=== PATIENT | female | born 1935 | race Native Hawaiian/Other Pacific Islander ===

== ENCOUNTER 2017-06-26 20:34 | Inpatient (IN) | payer MEDICARE, BC ==
[~2017-06-26] VITALS: Ht 160 cm; Wt 83.1 kg
[~2017-06-26 20:34] MED LIST: BYST10TA2 PO; CITRACAL PO; CLON.2 PO; CYMB30CA PO; DEXI60CA3 PO; EPIP0.3I IM; FELO10TA PO; ICOS1CAP PO; MYCOL15T TOP; [UNRECOGNIZED DRUG - OTHER] PO
[2017-06-26 20:44] VITALS: BP 147/94; PULSE 70; RESP 19; TEMP 98.8; O2SAT 95
[2017-06-26 20:54] VITALS: BP 146/66; PULSE 69; RESP 15; O2SAT 95
[2017-06-26] MEDS ORDERED: SODIUM CHLORIDE 0.9% FLUSH 10 ML FLUSH IVF PRN ×2 (21:00→23:45)
--- NOTE | 2017-06-26 21:04 | PD ---
HPI Chief Complaint: fall Time Seen by Provider: 20:50 Travel History International Travel<30 days: No Contact w/Intl Traveler<30days: No Traveled to known affect area: No History of Present Illness HPI 81-year-old female presents to the emergency department by EMS transport from her physician office. 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 Patient had immediate pain to her left humerus. Patient was identified to have deformity of the left upper arm. Patient has had previous surgery to the left shoulder. Patient is left-handed. Patient denies any distal numbness tingling or weakness. Patient reports she did not hit her head did not have loss of consciousness. Patient initially did not have neck pain but now reports midline neck pain. Patient presents on EMS stretcher with sling application to the left upper extremity and patella placed to provide support. Patient denies any chest pain, pleuritic chest pain, rib pain, shortness of breath, abdominal pain, pelvic pain, back pain, right upper extremity or bilateral lower extremity new numbness tingling or weakness or pain. Patient uses a cane due to sequela of complications from shingles of the low back one year ago. Patient has been left with chronic right lower extremity weakness. At time of EMS evaluation left humerus/upper arm pain was 10 over 10 in intensity; after morphine sulfate 10 mg IV current pain is reported as 2/10 in intensity. Patient rates her posterior neck pain 2/10 in intensity. Patient with extensive past medical history that includes ADHD, lupus, arthritis, gastroparesis managed by diet, GERD, hypertension, idiopathic cytopenia purpura status post splenectomy, obstructive sleep apnea without CPAP , osteoporosis, renal cell carcinoma with right nephrectomy, psoriasis, recurrent sinus infection, cataract surgery, cholecystectomy, previous left shoulder proximal humerus surgery for/2014, hysterectomy, and bilateral femur fractures status post open reduction internal fixation. According to patient's , Dr. Mancilla, Dr. Vale, orthopedist marine service station attendant for patient's orthopedist Dr. Huerta, is to be contacted as soon as imaging of the left upper extremity is resulted. [facility] Past Medical History Narrative Medical ADHD, lupus, arthritis, gastroparesis managed by diet, GERD, hypertension, idiopathic cytopenia purpura status post splenectomy, obstructive sleep apnea without CPAP, osteoporosis, renal cell carcinoma with right nephrectomy, psoriasis, recurrent sinus infection, cataract surgery, cholecystectomy, previous left shoulder proximal humerus surgery , hysterectomy, and bilateral femur fractures status post open reduction internal fixation; no alcohol use no tobacco use no substance use; nursing notes reviewed Arthritis: Yes (OSTEOARTHRITIS) Blood Disorders: No Cancer: Yes Genitourinary: Yes Hypertension: Yes Psychiatric: No Past Surgical History Cholecystectomy: Yes Genitourinary Surgery: Yes (R NEPHRECTOMY DUE TO RENAL CARCINOMA) Hysterectomy: Yes Joint Replacement: Yes Social History Alcohol Use: No Tobacco Use: No Substance Use: No Allergies-Medications (Allergen,Severity, Reaction): Coded Allergies: Sulfa (Sulfonamide Antibiotics) (Unverified Allergy, Severe, 06/09/17) UNKNOWN benazepril (Unverified Allergy, Severe, 06/09/17) captopril (Unverified Allergy, Severe, 06/09/17) cefuroxime (Unverified Allergy, Severe, 06/09/17) codeine (Unverified Allergy, Severe, 06/09/17) UNKNOWN enalaprilat (Unverified Allergy, Severe, 06/09/17) fosinopril (Unverified Allergy, Severe, 06/09/17) iodine (Unverified Allergy, Severe, 06/09/17) UNKNOWN latex (Unverified Allergy, Severe, Hives, 06/09/17) levofloxacin (Unverified Allergy, Severe, 06/09/17) UNKNOWN PATIENT SAID HAS HAD CIPRO BEFORE WITH NO PROBLMES lisinopril (Unverified Allergy, Severe, 06/09/17) penicillin G (Unverified Allergy, Severe, 06/09/17) UNKNOWN pentazocine (Unverified Allergy, Severe, 06/09/17) potassium iodide (Unverified Allergy, Severe, 06/09/17) UNKNOWN povidone-iodine (Unverified Allergy, Severe, 06/09/17) UNKNOWN quinapril (Unverified Allergy, Severe, 06/09/17) Uncoded Allergies: Tetanus Antitoxin (Allergy, Severe, Anaphylaxis, 11/15/09) bee and wasp stings (Allergy, Severe, 06/21/09) cefzol (Allergy, Severe, 06/21/09) hep b (Allergy, Severe, 06/21/09) nsaids (Allergy, Severe, 06/21/09) CRAB,LOBSTER, SHRIMP (Allergy, Unknown, 05/23/06) AARB's (Adverse Reaction, Intermediate, Cough with all of them, 01/17/15) Reported Meds & Prescriptions Reported Meds & Active Scripts Active Reported [place]-3 Fish Oil/Vitamin (Fish Oil-Cholecalciferol) 1,000-1,000 Mg Cap 1 Cap PO DAILY Vitamin D3 (Cholecalciferol) 2,000 Unit Cap 2,000 Units PO DAILY Valtrex (Valacyclovir HCl) 1,000 Mg Tab 1,000 Mg PO TID Valium (Diazepam) 10 Mg Tab 10 Mg PO HS PRN [prevagin] 1 Tab PO DAILY Losartan (Losartan Potassium) 50 Mg Tab 50 Mg PO DAILY [Cortumin] 1 Tab PO DAILY Clonidine (Clonidine HCl) 0.2 Mg Tab 0.2 Mg PO HS Citracal + D3 Maximum (Calcium Citrate-Vitamin D) 315-250 Mg-Unit Tab 1 Tab PO DAILY Centrum Silver Women Tablet (Multivit-Min/Iron/Folic/Lutein) 8 Mg Iron-400 Mcg- 300 Mcg Tablet 1 Tab PO DAILY Armodafinil 250 Mg Tab 250 Mg PO DAILY Review of Systems Except as stated in HPI: all other systems reviewed are Neg Physical Exam Narrative GENERAL: Well-developed elderly female in no acute distress no respiratory distress resting supine on exam stretcher; GCS 15; left upper extremity with sling in place and follow for support. SKIN: Warm and dry. HEAD: Normocephalic. Atraumatic. Scalp nontender to direct palpation no bony step-off no soft tissue swelling. EYES: No scleral icterus. Pupils equal round reactive to light extraocular muscles intact. No injection or drainage. ENT: Mucous members moist airway is patent; bilateral tympanic membranes no redness no dullness no hemotympanum NECK: Supple, trachea midline. Mild midline tenderness to palpation along the posterior spine without bony step-off or point tenderness. Cervical collar applied. No JVD or lymphadenopathy. CARDIOVASCULAR: Regular rate and rhythm without murmurs, gallops, or rubs. Chest wall: Nontender to palpation. RESPIRATORY: Breath sounds equal bilaterally. No accessory muscle use. GASTROINTESTINAL: Abdomen soft, non-tender, nondistended. MUSCULOSKELETAL: No cyanosis, or edema. Left upper extremity with sling in place soft tissue swelling noted that shaft of the upper arm; no point tenderness to palpation at the shoulder or at the elbow extremity is kept in position of comfort; distally forearm wrist and hand digits neurovascular tendon intact; capillary refill brisk and less than 2 seconds, radial pulses 2+ to palpation. No CVA tenderness. Pelvis stable. Bilateral lower extremities nontender to palpation demonstrate intact range of motion capillary refill brisk and less than 2 seconds dorsalis pedis pulses 2+ to palpation bilaterally ; right upper extremity intact range of motion radial pulse 2+ to palpation. BACK: Nontender without obvious deformity to direct palpation. No CVA tenderness. Pelvis stable. Data Data Last Documented VS Vital Signs Date Time Temp Pulse Resp B/P (MAP) Pulse Ox O2 Delivery O2 Flow Rate FiO2 06/26/17 20:54 69 15 146/66 (92) 95 Room Air 06/26/17 20:44 98.8 Orders Orders Electrocardiogram (06/26/17 20:51) Complete Blood Count With Diff (06/26/17 20:51) Comprehensive Metabolic Panel (06/26/17 20:51) Prothrombin Time / Inr (Pt) (06/26/17 20:51) Act Partial Throm Time (Ptt) (06/26/17 20:51) Type And Screen (06/26/17 20:51) Chest, Single Ap (06/26/17 20:51) Iv Access Insert/Monitor (06/26/17 20:51) Oximetry (06/26/17 20:51) Ecg Monitoring (06/26/17 20:51) Sodium Chloride 0.9% Flush (Ns Flush) (06/26/17 21:00) Ct Cerv Spine W/O Contrast (06/26/17 ) Humerus (Min 2vws) (06/26/17 ) NPO (06/26/17 20:51) Apply Cervical Collar (06/26/17 20:51) Ice/Cold Pack (06/26/17 20:51) Splint Or Brace Apply/Monitor (06/26/17 22:49) Support Splint (06/26/17 22:49) Morphine Inj (Morphine Inj) (06/26/17 23:00) Labs Laboratory Tests Test 06/26/17 20:58 White Blood Count 11.2 TH/MM3 Red Blood Count 4.75 MIL/MM3 Hemoglobin 14.8 GM/DL Hematocrit 45.1 % Mean Corpuscular Volume 95.0 FL Mean Corpuscular Hemoglobin 31.2 PG Mean Corpuscular Hemoglobin Concent 32.9 % Red Cell Distribution Width 13.7 % Platelet Count 310 TH/MM3 Mean Platelet Volume 8.3 FL Neutrophils (%) (Auto) 46.5 % Lymphocytes (%) (Auto) 40.5 % Monocytes (%) (Auto) 8.7 % Eosinophils (%) (Auto) 3.4 % Basophils (%) (Auto) 0.9 % Neutrophils # (Auto) 5.2 TH/MM3 Lymphocytes # (Auto) 4.5 TH/MM3 Monocytes # (Auto) 1.0 TH/MM3 Eosinophils # (Auto) 0.4 TH/MM3 Basophils # (Auto) 0.1 TH/MM3 CBC Comment DIFF FINAL Differential Comment Prothrombin Time 10.8 SEC Prothromb Time International Ratio 1.0 RATIO Activated Partial Thromboplast Time 25.1 SEC Blood Urea Nitrogen 14 MG/DL Creatinine 1.11 MG/DL Random Glucose 94 MG/DL Total Protein 8.3 GM/DL Albumin 3.1 GM/DL Calcium Level 9.0 MG/DL Alkaline Phosphatase 117 U/L Aspartate Amino Transf (AST/SGOT) 40 U/L Alanine Aminotransferase (ALT/SGPT) 25 U/L Total Bilirubin 0.4 MG/DL Sodium Level 134 MEQ/L Potassium Level 4.7 MEQ/L Chloride Level 99 MEQ/L Carbon Dioxide Level 28.4 MEQ/L Anion Gap 7 MEQ/L Estimat Glomerular Filtration Rate 47 ML/MIN [facility] Medical Decision Making Medical Screen Exam Complete: Yes Emergency Medical Condition: Yes Medical Record Reviewed: Yes Interpretation(s) CT cerv spine CONCLUSION: Chronic degenerative changes throughout the cervical spine as described above. An acute bony abnormality is not seen. Manny Ugarte MD on June 26, 2017 at 22:42 Differential Diagnosis Humerus fracture, shoulder dislocation, cervical spine sprain strain fracture Narrative Course Patient transition from EMS stretcher to ED stretcher with left upper extremity immobilized with sling and pillow; specimens corrected and sent for resulting; imaging studies ordered; patient kept npo. At 11 PM cervical collar removed by id Physician Communication Physician Communication discussed with Dr Vale--patient status post reverse total shoulder replacement with a periprosthetic fracture --discussed with zeenat for Dr Agee --long arm splint npo after MN; call placed to discussed with Shamika admit to Dr Emerson Diagnosis Primary Impression: Humerus shaft fracture Qualified Codes: S42.322A - Displaced transverse fracture of shaft of humerus , left arm, initial encounter for closed fracture Vita Garcia MD Jun 26, 2017 21:04
[2017-06-26 21:33] LABS: AUTOMATED NEUTROPHIL # 5.2 TH/MM3 (1.8-7.7); BASOPHIL # 0.1 TH/MM3 (0-0.2); BASOPHIL % 0.9 % (0.0-2.0); EOSINOPHIL # 0.4 TH/MM3 (0-0.4); EOSINOPHIL % 3.4 % (0.0-4.0); HEMATOCRIT 45.1 % (35.0-46.0); HEMO FLAGS DIFF FINAL; LYMPH % 40.5 % (9.0-44.0); LYMPHOCYTE # 4.5 TH/MM3 (1.0-4.8); MEAN CORPUSCULAR HEMOGLOBIN 31.2 PG (27.0-34.0); MEAN CORPUSCULAR HGB CONC 32.9 % (32.0-36.0); MONO % 8.7 % (0.0-8.0); NEUT % 46.5 % (16.0-70.0); PLATELET COUNT 310 TH/MM3 (150-450); RED BLOOD COUNT 4.75 MIL/MM3 (4.00-5.30); RED CELL DISTRIBUTION WIDTH 13.7 % (11.6-17.2); WHITE BLOOD COUNT 11.2 TH/MM3 (4.0-11.0)
[2017-06-26 21:39] LABS: PROTHROMBIN TIME - PATIENT 10.8 SEC (9.8-11.6)
[2017-06-26 21:46] LABS: APTT (PATIENT) 25.1 SEC (24.3-30.1)
[2017-06-26 21:55] LABS: ANION GAP 7 MEQ/L (5-15); AST (GOT) 40 U/L (15-37); BICARBONATE 28.4 MEQ/L (21.0-32.0); BLOOD UREA NITROGEN 14 MG/DL (7-18); CHLORIDE 99 MEQ/L (98-107); GLOMERULAR FILTRATION RATE 47 ML/MIN (>89); SODIUM (NA) 134 MEQ/L (136-145)
[2017-06-26 21:56] LABS: POTASSIUM 4.7 MEQ/L (3.5-5.1)
[2017-06-26 21:57] LABS: ALKALINE PHOSPHATASE 117 U/L (45-117); ALT (GPT) 25 U/L (10-53); TOTAL BILIRUBIN ADULT 0.4 MG/DL (0.2-1.0)
--- NOTE | 2017-06-26 22:32 | RADRPT ---
EXAM DATE/TIME: 06/26/2017 21:18 [facility] COMPARISON: No previous studies available for comparison. INDICATIONS : Short of breath. MEDICAL HISTORY : None. SURGICAL HISTORY : None. ENCOUNTER: Initial ACUITY: 1 day PAIN SCORE: 0/10 LOCATION: Bilateral chest FINDINGS: A single view of the chest demonstrates mild increased density in the left base. The right lung is gr ossly clear. The heart size is normal. There is a left shoulder prosthesis in place. CONCLUSION: Suspected mild atelectasis or consolidation at the left base. Manny Ugarte MD on June 26, 2017 at 22:29 Board Certified Radiologist. This report was verified electronically.
[2017-06-26] MEDS ORDERED: [UNRECOGNIZED DRUG - OTHER] PO (22:42)
[2017-06-26] MEDS ORDERED: MULT1TAB61 PO (22:42)
[2017-06-26] MEDS ORDERED: CITRTAB7 PO (22:42)
[2017-06-26] MEDS ORDERED: prevagin PO (22:42)
[2017-06-26] MEDS ORDERED: LOSA50TA PO (22:42)
[2017-06-26] MEDS ORDERED: CLON0.2T PO (22:42)
[2017-06-26] MEDS ORDERED: DIAZ10 PO (22:42)
[2017-06-26] MEDS ORDERED: ARMO1TAB4 PO (22:42)
[2017-06-26] MEDS ORDERED: OMEGCAP PO (22:43)
[2017-06-26] MEDS ORDERED: VALT1TAB PO (22:43)
[2017-06-26] MEDS ORDERED: VITA2000 PO (22:43)
--- NOTE | 2017-06-26 22:43 | RADRPT ---
EXAM DATE/TIME: 06/26/2017 21:23 [facility] COMPARISON: No previous studies available for comparison. INDICATIONS : Left arm pain after fall. MEDICAL HISTORY : None. SURGICAL HISTORY : ORIF of left shoulder. ENCOUNTER: Initial ACUITY: 1 day PAIN SCORE: 10/10 LOCATION: Left Humerus FINDINGS: There is a left shoulder prosthesis in place. There is fracture of the mid humerus at the level of th e distal aspect of the humeral component of the prosthesis. The distal fragment is displaced posterio rly and laterally. CONCLUSION: Acute fracture of the mid humerus. The patient has a left humeral prosthesis in place. Manny Ugarte MD on June 26, 2017 at 22:40 Board Certified Radiologist. This report was verified electronically.
--- NOTE | 2017-06-26 22:57 | RADRPT ---
EXAM DATE/TIME: 06/26/2017 21:33 [facility] COMPARISON: No previous studies available for comparison. INDICATIONS : Trauma; fall. RADIATION DOSE: 20.94 CTDIvol (mGy) MEDICAL HISTORY : Cardiovascular disease. Hypertension. Renal carcinoma SURGICAL HISTORY : Hysterectomy. Cholecystectomy. ENCOUNTER: Initial ACUITY: 1 day PAIN SCALE: 10/10 LOCATION: Neck TECHNIQUE: Volumetric scanning of the cervical spine was performed. Multiplanar reconstructions i n the sagittal, coronal and oblique axial planes were performed. Using automated exposure control a nd adjustment of the mA and/or kV according to patient size, radiation dose was kept as low as reason ably achievable to obtain optimal diagnostic quality images. DICOM format image data is available e lectronically for review and comparison. FINDINGS: VERTEBRAE: The cervical vertebral bodies are normal in height. There is very prominent hypertroph ic change seen around the anterior arch of the C1. This extends to the anterior inferior aspect of th e clivus and inferiorly from the C1 anterior arch anterior to the dens. This is chronic. The C1 ring is intact. ALIGNMENT: There is mild anterior subluxation of C4 on C5 and C5 on C6 in the order of 2 mm secon joy to facet hypertrophy. C2-C3: There is mild posterior osteophytic ridging at the posterior superior aspect of the C3 verteb ral body causing a minimal impression on the anterior aspect of the thecal sac. There is bilateral fa cet hypertrophy being asymmetric and much more prominent on the right. There is mild narrowing of th e right neural foramina. The left neural foramina appears intact. C3-C4: There is mild disc bulge and osteophytic ridging causing a mild impression on the thecal sac. There is uncovertebral hypertrophy. There SI bilateral facet hypertrophy being worse on the right. There is narrowing of the right neural foramina. The left neural foramina is grossly intact. C4-C5: Again noted is the anterior subluxation. A significant impression on the thecal sac is not c learly seen. There is uncovertebral and facet hypertrophy. There is narrowing of the neural foramina bilaterally. C5-C6: Disc demonstrates decreased height. There is minimal bulging. Again noted is the anterior dyson bluxation of C5 on C6. Anterior marginal osteophytes are seen. There is uncovertebral and facet hy pertrophy causing narrowing of the neural foramina bilaterally. C6-C7: There is mild disc bulge and posterior osteophytic ridging causing a mild impression on the t hecal sac. There is uncovertebral hypertrophy. The neural foramina are grossly normal. Prominent an terior marginal osteophytes are seen. C7-T1: Disc space is intact. There is no spinal stenosis and the neural foramina are normal. There is bilateral facet hypertrophy. CONCLUSION: Chronic degenerative changes throughout the cervical spine as described above. An ac [place] bony abnormality is not seen. Manny Ugarte MD on June 26, 2017 at 22:42 Board Certified Radiologist. This report was verified electronically.
[2017-06-26] MEDS ORDERED: MORPHINE SULFATE 4 MG/ML INJ IV PUSH ONE (23:00)
[2017-06-26 23:36] VITALS: O2SAT 95
[2017-06-26] MEDS ORDERED: ONDANSETRON HCL 4 MG/2 ML VIAL IVP PRN (23:45)
[2017-06-26] MEDS ORDERED: NALOXONE HCL 0.4 MG/ML AMP IV PRN (23:45)
[2017-06-26] MEDS ORDERED: LACTULOSE SYRUP 20 GM/30 ML CUP PO PRN (23:45)
[2017-06-26] MEDS ORDERED: SENNOSIDES 8.6 MG TAB PO PRN (23:45)
[2017-06-26] MEDS ORDERED: BISACODYL 10 MG SUPP RECTAL PRN (23:45)
[2017-06-26] MEDS ORDERED: MAGNESIUM HYDROXIDE SUSP 30 ML CUP PO PRN (23:45)
[2017-06-26] MEDS ORDERED: MORPHINE SULFATE 8 MG/ML INJ IV PUSH ONE (23:45)
[2017-06-26] MEDS ORDERED: SODIUM CHLORIDE 0.9% FLUSH 10 ML FLUSH IV FLUSH PRN (23:45)
[2017-06-27] VITALS (7 sets, daily range): BP systolic 113–134; BP diastolic 64–77; PULSE 55–113; RESP 16–18; TEMP 96.7–99.1; O2SAT 94–97
[2017-06-27] MEDS ORDERED: MORPHINE SULFATE 4 MG/ML INJ IV PUSH PRN (00:15)
[2017-06-27] MEDS: SODIUM CHLOR 0.9% 1000 ML INJ 1,000 ML IV SCH ×3 (00:31→20:30)
[2017-06-27] MEDS ORDERED: INSULIN HUMAN REGULAR 1,000 UNITS/10 ML VIAL SQ PRN (03:00)
[2017-06-27] MEDS ORDERED: CHLORHEXIDINE GLUCONATE 2 % 1 PACK (2 CLOTHS) TOPICAL PRN (03:00)
[2017-06-27] MEDS ORDERED: LACTATED RINGER'S 1000 ML IV PRN (03:00)
[2017-06-27] MEDS ORDERED: POVIDONE IODINE 5% (ANTISEPSIS KIT) 4 APPLICATIONS EACH NARE PRN (03:00)
[2017-06-27] MEDS ORDERED: METOPROLOL TARTRATE 25 MG TAB PO PRN (03:00)
[2017-06-27] MEDS ORDERED: SODIUM CHLORID 0.9% 500 ML IV PRN (03:00)
--- NOTE | 2017-06-27 07:13 | PD.ORT.PN ---
Subjective Subjective Remarks s/p fall with left arm pain no other complaints. Objective Vitals Vital Signs Date Time Temp Pulse Resp B/P (MAP) Pulse Ox O2 Delivery O2 Flow Rate FiO2 06/27/17 04:13 99.0 68 18 113/67 (82) 95 06/27/17 03:17 Room Air 06/27/17 00:50 99.1 67 18 128/77 (94) 96 06/27/17 00:23 62 18 125/67 (86) 95 06/26/17 23:36 95 06/26/17 20:54 69 15 146/66 (92) 95 Room Air 06/26/17 20:44 98.8 70 19 147/94 (111) 95 I/O 06/26/17 06/26/17 06/26/17 06/27/17 06/27/17 06/27/17 07:00 15:00 23:00 07:00 15:00 23:00 Intake Total 0 ml Balance 0 ml Intake Oral 0 ml # Voids 1 # Bowel Movements 0 Result Diagram: 06/26/17205706/26/172057 Other Results Laboratory Tests Test 06/26/17 20:58 Prothromb Time International Ratio 1.0 RATIO Prothrombin Time 10.8 SEC (9.8-11.6) Imaging Last 24 hours Impressions Chest X-Ray 06/26/172050 Signed Impressions: Service Date/Time: Monday, June 26, 2017 21:18 - CONCLUSION: Suspected mild atelectasis or consolidation at the left base. Manny Ugarte MD Objective Remarks LUE: +long arm splint. good motion of fingers/hand. full sensation to median/ ulnar nerve. full radial nerve function Assessment & Plan Assessment and Plan 1) Left Midshaft Periprosthetic Humerus Fx -npo -consents -surgery today Reggie Wasserman Jun 27, 2017 07:13
[2017-06-27] MEDS ORDERED: VITA2000 PO (07:15)
[2017-06-27] MEDS ORDERED: HYDR-3580 PO (07:15)
[2017-06-27] MEDS ORDERED: CALCTAB19 PO (07:15)
[2017-06-27] MEDS ORDERED: ERGO1CAP30 PO (07:15)
[2017-06-27] MEDS: DOCUSATE SODIUM 50 MG/SENNA 8.6 MG TAB PO SCH ×2 (08:15→20:31)
[2017-06-27] MEDS: valACYclovir HCL 500 MG TAB PO SCH ×2 (08:15→13:00)
[2017-06-27] MEDS: SODIUM CHLORIDE 0.9% FLUSH 10 ML FLUSH IV FLUSH SCH ×2 (08:15→20:30)
[2017-06-27] MEDS ORDERED: SODIUM CHLORIDE 0.9% FLUSH 10 ML FLUSH IV FLUSH SCH (09:00)
[2017-06-27 09:12] LABS: AUTOMATED NEUTROPHIL # 5.3 TH/MM3 (1.8-7.7); BASOPHIL # 0.1 TH/MM3 (0-0.2); BASOPHIL % 0.6 % (0.0-2.0); EOSINOPHIL # 0.3 TH/MM3 (0-0.4); EOSINOPHIL % 2.5 % (0.0-4.0); HEMO FLAGS DIFF FINAL; LYMPH % 38.9 % (9.0-44.0); LYMPHOCYTE # 4.1 TH/MM3 (1.0-4.8); MEAN CELL VOLUME 95.4 FL (80.0-100.0); MEAN CORPUSCULAR HEMOGLOBIN 32.7 PG (27.0-34.0); MEAN CORPUSCULAR HGB CONC 34.3 % (32.0-36.0); MONO % 8.4 % (0.0-8.0); NEUT % 49.6 % (16.0-70.0); PLATELET COUNT 282 TH/MM3 (150-450); RED BLOOD COUNT 4.29 MIL/MM3 (4.00-5.30); RED CELL DISTRIBUTION WIDTH 13.8 % (11.6-17.2); WHITE BLOOD COUNT 10.6 TH/MM3 (4.0-11.0)
--- NOTE | 2017-06-27 09:23 | EKG ---
Date Performed: 06/26/2017 Time Performed: 21:55:14 PTAGE: 81 years EKG: Sinus rhythm LOW QRS VOLTAGE IN EXTREMITY LEADS ABNORMAL QRS-T ANGLE ABNORMAL ECG PREVIOUS TRACING : 05/19/2006 12.07 DOCTOR: Octavio Alonso Interpretating Date/Time 06/27/2017 09:21:19
[2017-06-27] MEDS ORDERED: ETOMIDATE 20 MG/10 ML VIAL ONE (09:30)
[2017-06-27] MEDS ORDERED: MIDAZOLAM HCL 2 MG/2 ML VIAL ONE (09:42)
[2017-06-27] MEDS ORDERED: ACETAMINOPHEN 1000 MG/100 ML 100 ML IV ONE (09:42)
[2017-06-27 09:47] LABS: POTASSIUM 3.8 MEQ/L (3.5-5.1)
[2017-06-27] MEDS ORDERED: ceFAZolin 2 GM PREMIX 50 ML ONE (09:50)
[2017-06-27] MEDS ORDERED: VANCOMYCIN HCL 1000 MG VIAL ONE (09:51)
[2017-06-27] MEDS ORDERED: GENTAMICIN SULFATE 80 MG/2 ML VIAL ONE (09:51)
[2017-06-27] MEDS ORDERED: ePHEDrine/NS 25 MG/5 ML SYR IV ONE (12:00)
[2017-06-27] MEDS ORDERED: ONDANSETRON HCL 4 MG/2 ML VIAL IV PUSH ONE (12:00)
[2017-06-27] MEDS ORDERED: ETOMIDATE 20 MG/10 ML VIAL IV PUSH ONE (12:00)
--- NOTE | 2017-06-27 12:14 | PD.OP ---
cc: Stephen Wong MD Operative Report Date of Surgery: Jun 27, 2017 Preoperative Diagnosis: Displaced left humerus periprosthetic fracture Postoperative Diagnosis: Procedure: Open reduction internal fixation left humerus fracture Anesthesia: Gen. Surgeon: Stephen Wong Clutch Assembler(s): IVETTE Diaz PA-C The surgical procedure was assisted by my physician dam tender assistant. My P.A. presence was necessary throughout this case for the manipulation and positioning of the surgical extremity. My P.A. was assisting me throughout the duration of this procedure. The skill set of a physician dam tender assistant was medically necessary to complete this procedure. During the surgical case the surgical product sales consultant was working at the back table and the physician dam tender assistant was directly assisting me. Operation and Findings: Patient was seen and evaluated preoperatively. Treatment options were discussed regarding left humerus periprosthetic fracture including surgical and nonsurgical treatments. After detailed discussion of risk and benefits of procedure patient wishes to proceed with surgery. Risks of surgery include bleeding, infection, nonunion, malunion, painful hardware, loss of motion of shoulder and elbow, weakness and numbness of arm, injury to radial, ulnar, or median nerve, as well as medical competitions including blood clots stroke and . Patient was brought to operating room and placed on the OR table. GETA was administered by anesthesiologist. Clean air was utilized for this case because of her total shoulder arthroplasty. Operative arm and shoulder were prepped with alcohol followed by Hibiclens and draped usual sterile fashion. Timeout procedure was performed. IV antibiotics were given prior to incision. A standard anterior approach was utilized. Proximally her previous scar was utilized. Subcutaneous tissues was dissected with Bovie. Cephalic vein was identified and protected. Proximally the deltopectoral interval was opened. Distally the brachialis was split. The fracture was identified. There was an area of comminution. Soft tissue was removed from the fracture site. Fracture site was cleaned with curettes. At this point the fracture was reduced using fracture tenaculums. Multiplanar fluoroscopy confirmed excellent of fracture. A Synthes 3.5 plate was contoured to fit the humerus. Plate was provisionally held the bone with K wires. 3.5 cortical screws were placed distal to the fracture. 3 cables were placed along the proximal segment. Soft tissue was carefully retracted around the humerus to avoid injury to neurovascular structures. It was passed around the humerus. Threaded guides were screwed into the plate. The cable was passed through the threaded guides. The cables were now tensioned appropriately. Cables were now crimped and cut. Additional unicortical locking screws were also placed proximally. Multiple screws were placed in each side of the fracture. All screws were predrilled and premeasured for appropriate length. Final fluoroscopy revealed excellent alignment of fracture with well-placed hardware. Incision was thoroughly irrigated. Fascia was closed with #1 Vicryl, subcutaneous tissues closed with 3 -0 Vicryl, and skin was closed with deena. Sterile dressings were applied. Needle and sponge counts were correct. Patient was placed into a sling, and then transferred to recovery room in stable condition Stephen Wong MD Jun 27, 2017 12:14
[2017-06-27] MEDS ORDERED: SODIUM CHLORIDE 0.9% FLUSH 5 ML FLUSH IVF PRN (12:15)
[2017-06-27] MEDS ORDERED: diphenhydrAMINE HCL 25 MG CAP PO PRN (12:15)
[2017-06-27] MEDS ORDERED: DO NOT ADM ANY ANTICOAGULANT DRUGS PRN (12:33)
[2017-06-27] MEDS: CALCIUM/VITAMIN D 250 MG/125 U TAB PO SCH ×2 (13:00→17:25)
[2017-06-27] MEDS: MORPHINE SULFATE 4 MG/ML INJ IV PUSH PRN ×2 (13:27→13:45)
--- NOTE | 2017-06-27 13:32 | MB ---
cc: ANTONINA MILLS DATE OF CONSULTATION: 06/27/2017. 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 She works as a psychiatrist. She was leaving her office with her . Her foot got caught on the carpet causing her to fall. She fell forward on her left side. She is left hand-dominant. She had immediate left arm pain. She presented to the emergency room where x-rays revealed a displaced mid-shaft humerus fracture. She has a history of two prior surgeries on her left shoulder. The second surgery was a reverse total shoulder arthroplasty done in [place]. She had been doing relatively well with her shoulder until this fall. The pain is worse with movement. She denies numbness or tingling of her hands. She denies any dizziness, syncope or loss of consciousness. Her local orthopedic surgeon is Dr. Huerta. PAST MEDICAL HISTORY / ILLNESSES: 1. Lupus. 2. Arthritis. 3. Gastroparesis. 4. Reflux. 5. Hypertension. 6. Idiopathic cytopenic purpura. 7. COPD. 8. Osteoporosis. 9. Renal cell carcinoma. 10. Psoriasis. PAST SURGICAL HISTORY: 1. Bilateral femur open reduction internal fixation. 2. Right nephrectomy. 3. Cataract surgery. 4. Cholecystectomy. ALLERGIES: 1. SULFA. 2. CAPTOPRIL. 3. CEFUROXIME. 4. CODEINE. 5. ENALAPRIL. 6. LATEX. 7. LEVOFLOXACIN. 8. LISINOPRIL. 9. PENICILLIN. 10. POTASSIUM. 11. PENTAZOCINE. 12. IODINE. 13. QUINAPRIL. MEDICATIONS: 1. Vitamin D3. 2. Valtrex. 3. Losartan. 4. Clonidine. 5. Calcium with vitamin D. 6. Armodafinil. SOCIAL HISTORY: The patient lives at home with her . She still works 2-1/2 days a week. She denies alcohol, tobacco or drug use. FAMILY HISTORY: Noncontributory. REVIEW OF SYSTEMS: The patient denies headache, visual changes, neck pain, chest pain, shortness of breath, abdominal pain, nausea or vomiting, recent weight loss, or numbness or tingling of the extremities. She complains of left arm pain. The pain is worse with movement. She does have some unstable gait and typically walks with a cane. PHYSICAL EXAMINATION: GENERAL: The patient is a pleasant 81-year-old female in no acute distress. Her is at bedside. She is awake and alert. She appears well-developed, well-nourished VITAL SIGNS: Temperature 99.0, pulse 68, respirations 18, blood pressure 113/67, 02 saturations 95% on room air. HEAD, EYES, EARS, NOSE, THROAT: The patient is normocephalic. Pupils are equal. ABDOMEN: The abdomen is soft, nontender and nondistended. EXTREMITIES: Examination of the left arm reveals a well-healed scar along the anterior shoulder. She has tenderness to palpation around the humerus. She has pain with any attempted shoulder or elbow motion. She has intact sensation in the left fingers. She has good capillary refill in all fingers. She is able to flex and extend her wrist and fingers with minimal discomfort. Examination of the right arm reveals no pain with shoulder, elbow or wrist motion. She has intact radial pulses palpable. Sensation is intact in all fingers. Examination of the lower extremities reveals minimal pain with hip, knee or ankle motion. Skin is intact to both feet. Sensation is intact to both feet. Dorsalis pedis pulses are palpable. X-RAYS: X-rays of the left humerus were reviewed. The patient has a reverse total shoulder arthroplasty in place. This is reduced. She has a displaced mid-shaft humerus fracture distal to the stem. There is no obvious loosening of the prosthesis. IMPRESSION: 1. Osteoporosis. 2. Displaced left humerus periprosthetic fracture. 3. Hypertension. 4. Lupus. Plan: The treatment options were discussed with the patient. I discussed with her the surgical and nonsurgical options. I discussed with her the risks and benefits of each. At this point, the fracture is moderately displaced. Surgical intervention would likely give her a better outcome with quicker healing process; however, the risks of surgery including bleeding, infection, injury to arteries, nerves or blood vessels, injury to the radial, ulnar or median nerve, weakness or numbness of hand, painful hardware, nonunion, infection as well as medical complications including blood clot, stroke, heart attack were discussed with the patient. She would like to proceed with surgery. All questions were answered. I will plan on surgery today. A mid-level provider in my office, nurse practitioner or PA, may see this patient on a follow-up basis and continue to implement the objective of this plan including: Starting or adjusting medications, injections of muscle, tendon, bursa or joints, cast application, orthotic or brace application, physical therapy, further radiographic studies including x-ray, MRI, CT, ultrasounds or bone scan, vascular studies, neurologic studies, or other specialist consultations, and proceeding with surgical management as appropriate. MD DIDIER Parks/ADAM /7:15 AM /1:12 PM GEOVANY
--- NOTE | 2017-06-27 13:55 | RADRPT ---
EXAM DATE/TIME: 06/27/2017 11:55 [facility] COMPARISON: HUMERUS LEFT (MIN 2VWS), June 26, 2017, 21:23. INDICATIONS : Open reduction internal fixation of the left humerus. MEDICAL HISTORY : None. SURGICAL HISTORY : ORIF left shoulder. ENCOUNTER: Subsequent ACUITY: 2 days PAIN SCORE: Non-responsive. LOCATION: Left humerus. FINDINGS: Anatomic alignment across the proximal humeral fracture the bony prosthesis with plate and screws. CONCLUSION: Anatomic alignment. Mic Cardona MD FACR on June 27, 2017 at 13:53 Board Certified Radiologist. This report was verified electronically.
--- NOTE | 2017-06-27 13:56 | HHI.HP ---
HPI Service [facility] Primary Care Physician Lj Lewis MD Admission Diagnosis L humerus fracture; h/o HTN Diagnoses: Chief Complaint: Fall and left arm pain Travel History International Travel<30 Days: No Contact w/Intl Traveler <30 Da: No Traveled to Known Affected Are: No History of Present Illness This is an 81-year-old female with significant past medical history of lupus, arthritis, hypertension, idiopathic thrombocytopenic purpura status post splenectomy, previous falls with fractures. Patient presented to the emergency room after she had a fall. 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 Patient had immediate pain to the left humerus. Patient was noted with the deformity to the left upper arm. She has prior history of 2 surgeries to the left arm. She had a left total shoulder reverse surgery in the past. Patient presented to the emergency room, she was evaluated. Laboratory workup was essentially unremarkable except for chronic renal insufficiency which appears to be at her baseline. Imaging studies were completed, showing acute fracture of the mid humerus. Patient was evaluated by Dr. Wong and surgical repair was recommended. She underwent - Open reduction internal fixation left humerus fracture. Patient is now evaluated, she is back in her room. She is groggy has received pain medicine. Information is obtained from patient's who is also a local physician. He indicates there were no preceding symptoms, she simply tripped and fell. She does use a cane for ambulation, has chronic right lower extremity weakness as a residual complication from shingles approximately one year ago. Patient is admitted for further evaluation and treatment. Review of Systems ROS Limitations: Clinical Condition (post op, lethargic) Musculoskeletal: COMPLAINS OF: Joint pain Past Family Social History Past Medical History 1. Lupus. 2. Arthritis. 3. Gastroparesis. 4. Reflux. 5. Hypertension. 6. Idiopathic cytopenic purpura. 7. COPD. 8. Osteoporosis. 9. Renal cell carcinoma. 10. Psoriasis. 11. Renal carcinoma Past Surgical History splenectomy for thrombocytopenia approximately 1969 Total abdominal hysterectomy 1975. Cholecystectomy 1989. Right total knee arthroplasty Right nephrectomy 2002 Left cataract excision in 2004. Troch nail right femur 2005 Right rotator cuff debridement 2001 Left shoulder replacement Reported Medications Reported Meds & Active Scripts Active Calcium 600+D 200 (Calcium Carbonate-Vitamin D) 600-200 Mg-Unit Tab 1 Tab PO BID 30 Days Vitamin D3 (Cholecalciferol) 2,000 Unit Cap 2,000 Units PO DAILY Ergocalciferol 50,000 Unit Cap 50,000 Units PO Q7D Hydrocodone-Acetaminophen 7.5-325 mg Tab 1 Tab PO Q4H PRN Reported [place]-3 Fish Oil/Vitamin (Fish Oil-Cholecalciferol) 1,000-1,000 Mg Cap 1 Cap PO DAILY Vitamin D3 (Cholecalciferol) 2,000 Unit Cap 2,000 Units PO DAILY Valtrex (Valacyclovir HCl) 1,000 Mg Tab 1,000 Mg PO TID Valium (Diazepam) 10 Mg Tab 10 Mg PO HS PRN [prevagin] 1 Tab PO DAILY Losartan (Losartan Potassium) 50 Mg Tab 50 Mg PO DAILY [Cortumin] 1 Tab PO DAILY Clonidine (Clonidine HCl) 0.2 Mg Tab 0.2 Mg PO HS Citracal + D3 Maximum (Calcium Citrate-Vitamin D) 315-250 Mg-Unit Tab 1 Tab PO DAILY Centrum Silver Women Tablet (Multivit-Min/Iron/Folic/Lutein) 8 Mg Iron-400 Mcg- 300 Mcg Tablet 1 Tab PO DAILY Armodafinil 250 Mg Tab 250 Mg PO DAILY Allergies: Coded Allergies: Sulfa (Sulfonamide Antibiotics) (Unverified Allergy, Severe, 06/09/17) UNKNOWN benazepril (Unverified Allergy, Severe, 06/09/17) captopril (Unverified Allergy, Severe, 06/09/17) cefuroxime (Unverified Allergy, Severe, 06/09/17) codeine (Unverified Allergy, Severe, 06/09/17) UNKNOWN enalaprilat (Unverified Allergy, Severe, 06/09/17) fosinopril (Unverified Allergy, Severe, 06/09/17) iodine (Unverified Allergy, Severe, 06/09/17) UNKNOWN latex (Unverified Allergy, Severe, Hives, 06/09/17) levofloxacin (Unverified Allergy, Severe, 06/09/17) UNKNOWN PATIENT SAID HAS HAD CIPRO BEFORE WITH NO PROBLMES lisinopril (Unverified Allergy, Severe, 06/09/17) penicillin G (Unverified Allergy, Severe, 06/09/17) UNKNOWN pentazocine (Unverified Allergy, Severe, 06/09/17) potassium iodide (Unverified Allergy, Severe, 06/09/17) UNKNOWN povidone-iodine (Unverified Allergy, Severe, 06/09/17) UNKNOWN quinapril (Unverified Allergy, Severe, 06/09/17) Uncoded Allergies: Tetanus Antitoxin (Allergy, Severe, Anaphylaxis, 11/15/09) bee and wasp stings (Allergy, Severe, 06/21/09) cefzol (Allergy, Severe, 06/21/09) hep b (Allergy, Severe, 06/21/09) nsaids (Allergy, Severe, 06/21/09) CRAB,LOBSTER, SHRIMP (Allergy, Unknown, 05/23/06) AARB's (Adverse Reaction, Intermediate, Cough with all of them, 01/17/15) Active Ordered Medications Inpatient Medications Acetaminophen/ Hydrocodone Bitart (Sellers 7.5-325 Mg) 1 tab Q3H PRN PO PAIN 3< 10; Start 06/27/17 at 12:15 Bisacodyl (Dulcolax Supp) 10 mg DAILY PRN RECTAL SEVERE CONSITIPATION; Start at 23:45 Calcium/Vitamin D (Oscal-D 250-125) 250 mg TID PO ; Start 06/27/17 at 13:00 Cefazolin Sodium/ Dextrose 50 ml @ 100 mls/hr Q8H IV ; Start 06/27/17 at 18:00; Stop 06/28/17 at 10:29 Chlorhexidine Gluconate (Chlorhexidine 2% Cloth) 3 pack SPACE AND MISSILE OPERATIONS PRN TOPICAL SEE LABEL COMMENTS; Start 06/27/17 at 03:00; Stop 06/30/17 at 02:59 Cholecalciferol (Vitamin D3) 1,000 units DAILY PO ; Start 06/28/17 at 09:00 Diphenhydramine HCl (Benadryl) 25 mg Q6H PRN PO ITCHING; Start 06/27/17 at 12:15 Ergocalciferol (Drisdol) 50,000 units Q7D PO ; Start 06/27/17 at 16:00 Insulin Human Regular (NovoLIN R INJ) See Protocol Table ... SPACE AND MISSILE OPERATIONS PRN SQ SEE PROTOCOL TABLE; Start 06/27/17 at 03:00; Stop 06/30/17 at 02:59 IV Flush (NS Flush) 2 ml BID IVF ; Start 06/27/17 at 21:00 Lactated Ringer's 1,000 ml @ 30 mls/hr Q24H PRN IV SEE LABEL COMMENTS; Start at 03:00; Stop 06/30/17 at 02:59 Lactulose (Lactulose Liq) 30 ml DAILY PRN PO SEVERE CONSITIPATION; Start at 23:45 Magnesium Hydroxide (Milk Of Magnesia Liq) 30 ml Q12H PRN PO MILD - MODERATE CONSTIPATION; Start 06/26/17 at 23:45 Metoprolol Tartrate (Lopressor) 25 mg SPACE AND MISSILE OPERATIONS PRN PO SEE LABEL COMMENTS; Start 06/27/17 at 03:00; Stop 06/30/17 at 02:59 Miscellaneous Information ALL NURSING DEPARTME... UNSCH PRN .XX SEE LABEL COMMENTS; Start 06/27/17 at 12:33; Stop 06/28/17 at 12:32 Morphine Sulfate (Morphine Inj) 4 mg Q3H PRN IV PUSH break thru pain; Start 06/27/17 at 12:15 Naloxone HCl (Narcan Inj) 0.4 mg UNSCH PRN IV SEE LABEL COMMENTS; Start at 23:45 Ondansetron HCl (Zofran Inj) 4 mg Q6H PRN IVP NAUSEA OR VOMITING; Start at 23:45 Povidone Iodine (Betadine 5% Antisepsis Kit) 1 applic SPACE AND MISSILE OPERATIONS PRN EACH NARE SEE LABEL COMMENTS; Start 06/27/17 at 03:00; Stop 06/30/17 at 02:59 Senna/Docusate Sodium (Georgina-Colace) 1 tab BID PO ; Start 06/27/17 at 09:00 Sennosides (Senokot) 17.2 mg Q12H PRN PO MODERATE - SEVERE CONSTIPATION; Start 06/26/17 at 23:45 Sodium Chloride 500 ml @ 30 mls/hr [id number] PRN IV SEE LABEL COMMENTS; Start 06/27/17 at 03:00; Stop 06/30/17 at 02:59 Sodium Chloride (NS Flush) 2 ml BID IV FLUSH ; Start 06/27/17 at 09:00 Valacyclovir HCl (Valtrex) 1,000 mg TID PO ; Start 06/27/17 at 09:00 Family History Positive for multiple myeloma, DM, HTN Social History Pt. 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 No etoh, no smoking, no substance abuse. Physical Exam Vital Signs Vital Signs Date Time Temp Pulse Resp B/P (MAP) Pulse Ox O2 Delivery O2 Flow Rate FiO2 06/27/17 13:27 98.9 63 20 153/72 (99) 95 Nasal Cannula 2 06/27/17 13:15 64 20 175/72 (106) 92 Nasal Cannula 2 06/27/17 13:00 66 20 169/73 (105) 91 Nasal Cannula 2 06/27/17 12:45 71 20 158/79 (105) 91 Simple Mask 6 06/27/17 12:39 98.9 76 20 173/91 (118) 91 Simple Mask 6 06/27/17 08:07 98.9 61 18 134/77 (96) 94 06/27/17 04:13 99.0 68 18 113/67 (82) 95 06/27/17 03:17 Room Air 06/27/17 00:50 99.1 67 18 128/77 (94) 96 06/27/17 00:23 62 18 125/67 (86) 95 06/26/17 23:36 95 06/26/17 20:54 69 15 146/66 (92) 95 Room Air 06/26/17 20:44 98.8 70 19 147/94 (111) 95 Physical Exam GENERAL: This is a well-nourished, well-developed patient, in no apparent distress. SKIN: No rashes, ecchymoses or lesions. Cool and dry. HEAD: Atraumatic. Normocephalic. No temporal or scalp tenderness. EYES: Pupils equal round and reactive. Extraocular motions intact. No scleral icterus. No injection or drainage. ENT: Nose without bleeding, purulent drainage or septal hematoma. Throat without erythema, tonsillar hypertrophy or exudate. Uvula midline. Airway patent. NECK: Trachea midline. No JVD or lymphadenopathy. Supple, nontender, no meningeal signs. CARDIOVASCULAR: Regular rate and rhythm without murmurs, gallops, or rubs. RESPIRATORY: Clear to auscultation. Breath sounds equal bilaterally. No wheezes , rales, or rhonchi. GASTROINTESTINAL: Abdomen soft, non-tender, nondistended. No hepato-splenomegaly , or palpable masses. No guarding. MUSCULOSKELETAL: Left arm and anterior shoulder with dressing D/I, immobilized in sling. Able to make fist with left hand, intact sensation, radial pulse 2+. No other joint abnormality NEUROLOGICAL: Awakes to voice, groggy. No focal deficits. Difficult to asses Laboratory Laboratory Tests Test 06/26/17 20:58 06/27/17 08:04 White Blood Count 11.2 10.6 Red Blood Count 4.75 4.29 Hemoglobin 14.8 14.0 Hematocrit 45.1 41.0 Mean Corpuscular Volume 95.0 95.4 Mean Corpuscular Hemoglobin 31.2 32.7 Mean Corpuscular Hemoglobin Concent 32.9 34.3 Red Cell Distribution Width 13.7 13.8 Platelet Count 310 282 Mean Platelet Volume 8.3 8.4 Neutrophils (%) (Auto) 46.5 49.6 Lymphocytes (%) (Auto) 40.5 38.9 Monocytes (%) (Auto) 8.7 8.4 Eosinophils (%) (Auto) 3.4 2.5 Basophils (%) (Auto) 0.9 0.6 Neutrophils # (Auto) 5.2 5.3 Lymphocytes # (Auto) 4.5 4.1 Monocytes # (Auto) 1.0 0.9 Eosinophils # (Auto) 0.4 0.3 Basophils # (Auto) 0.1 0.1 CBC Comment DIFF FINAL DIFF FINAL Differential Comment Prothrombin Time 10.8 Prothromb Time International Ratio 1.0 Activated Partial Thromboplast Time 25.1 Blood Urea Nitrogen 14 15 Creatinine 1.11 1.19 Random Glucose 94 91 Total Protein 8.3 Albumin 3.1 Calcium Level 9.0 8.9 Alkaline Phosphatase 117 Aspartate Amino Transf (AST/SGOT) 40 Alanine Aminotransferase (ALT/SGPT) 25 Total Bilirubin 0.4 Sodium Level 134 136 Potassium Level 4.7 3.8 Chloride Level 99 99 Carbon Dioxide Level 28.4 31.0 Anion Gap 7 6 Estimat Glomerular Filtration Rate 47 44 Result Diagram: 06/27/17 0804 06/27/17 08 Imaging Last Impressions Chest X-Ray 06/26/172050 Signed Impressions: Service Date/Time: Monday, June 26, 2017 21:18 - CONCLUSION: Suspected mild atelectasis or consolidation at the left base. Manny Ugarte MD Humerus X-Ray 06/26/17 0000 Signed Impressions: Service Date/Time: Monday, June 26, 2017 21:23 - CONCLUSION: Acute fracture of the mid humerus. The patient has a left humeral prosthesis in place. Manny Ugarte MD Cervical Spine CT 06/26/17 0000 Signed Impressions: Service Date/Time: Monday, June 26, 2017 21:33 - CONCLUSION: Chronic degenerative changes throughout the cervical spine as described above. An acute bony abnormality is not seen. MD Rah Coffey VTE Risk Assessment Caprini VTE Risk Assessment: Mod/High Risk (score >= 2) Caprini Risk Assessment Model Point Value = 1 Point Value = 2 Point Value = 3 Point Value = 5 Age 41-60 Minor surgery BMI > 25 kg/m2 Swollen legs Varicose veins or History of unexplained or recurrent spontaneous Oral contraceptives or hormone replacement Sepsis (< 1 month) Serious lung disease, including pneumonia (< 1 month) Abnormal pulmonary function Acute myocardial infarction Congestive heart failure (< 1 month) History of inflammatory bowel disease Medical patient at bed rest Age 61-74 Arthroscopic surgery Major open surgery (> 45 min) Laparoscopic surgery (> 45 min) Malignancy Confined to bed (> 72 hours) Immobilizing plaster cast Central venous access Age >= 75 History of VTE Family history of VTE Factor V Leiden Prothrombin [id number] Lupus anticoagulant Anticardiolipin antibodies Elevated serum homocysteine Heparin-induced thrombocytopenia Other congenital or acquired thrombophilia Stroke (< 1 month) Elective arthroplasty Hip, pelvis, or leg fracture Acute spinal cord injury (< 1 month) Prophylaxis Regimen Total Risk Factor Score Risk Level Prophylaxis Regimen 0-1 Low Early ambulation 2 Moderate Order ONE of the following: *Sequential Compression Device (SCD) *Heparin 5000 units SQ BID 3-4 Higher Order ONE of the following medications: *Heparin 5000 units SQ TID *Enoxaparin/Lovenox 40 mg SQ daily (WT < 150 kg, CrCl > 30 mL/min) *Enoxaparin/Lovenox 30 mg SQ daily (WT < 150 kg, CrCl > 10-29 mL/min) *Enoxaparin/Lovenox 30 mg SQ BID (WT < 150 kg, CrCl > 30 mL/min) AND/OR *Sequential Compression Device (SCD) 5 or more Highest Order ONE of the following medications: *Heparin 5000 units SQ TID (Preferred with Epidurals) *Enoxaparin/Lovenox 40 mg SQ daily (WT < 150 kg, CrCl > 30 mL/min) *Enoxaparin/Lovenox 30 mg SQ daily (WT < 150 kg, CrCl > 10-29 mL/min) *Enoxaparin/Lovenox 30 mg SQ BID (WT < 150 kg, CrCl > 30 mL/min) AND *Sequential Compression Device (SCD) Assessment and Plan Problem List: (1) Humerus shaft fracture ICD Codes: S42.309A - Unspecified fracture of shaft of humerus, unspecified arm , initial encounter for closed fracture Status: Acute (2) HYPERTENSION NOS Status: Chronic Permanent Comment: Dr Cummins is Lap Checker Last Edited By: Daisha Loo on Jun 13, 2010 12:26 (3) Chronic Renal Failure Stage III Status: Chronic Permanent Comment: Dr Mccarthy foot roentgenologist Last Edited By: Daisha Loo on Jan 08, 2009 13:31 (4) Osteoarthritis Status: Chronic (5) HYPERLIPIDEMIA NEC/NOS Status: Chronic (6) Gastroesophageal reflux disease Status: Chronic (7) chronic right leg weakness Status: Chronic Assessment and Plan Admit to Dr. Emerson 81-year-old elderly female, presented after mechanical fall fall landing on her left side, found with acute fracture of the mid humerus. Patient with prior history of dual left shoulder surgery. Status post-Open reduction internal fixation left humerus fracture 06/27 -Appreciate orthopedic input -Continue with postoperative orthopedic care -SCDs for DVT prophylaxis -Pain management -Physical therapy for evaluation and treatment -Case management for discharge planning Chronic right leg weakness secondary to peripheral neuropathy associated with prior history of shingles -Physical therapy Hypertension, stable -Continue home meds Chronic kidney disease stage III -Monitor renal function closely, follow BMP -Avoid nephrotoxic agents Home medications reviewed, initiated as indicated SCDs for DVT prophylaxis Plan of care has been discussed with the patient, her , attending and registered nurse. Further management of the patient will be dependent on the hospital course This patient was seen by myself and Dr. Emerson, this H&P is written on his behalf Physician Certification 2 Midnight Certification Type: Admission for Inpatient Services Order for Inpatient Services The services are ordered in accordance with Medicare regulations or non- Medicare payer requirements, as applicable. In the case of services not specified as inpatient-only, they are appropriately provided as inpatient services in accordance with the 2-midnight benchmark. Estimated LOS (days): 2 2 days is the estimated time the patient will need to remain in the hospital, assuming treatment plan goals are met and no additional complications. Post-Hospital Plan: Home Health Problem Qualifiers (1) Humerus shaft fracture: Qualified Codes: S42.322A - Displaced transverse fracture of shaft of humerus, left arm, initial encounter for closed fracture (2) Osteoarthritis: Qualified Codes: M19.90 - Unspecified osteoarthritis, unspecified site (3) Gastroesophageal reflux disease: Qualified Codes: K21.9 - Gastro-esophageal reflux disease without esophagitis Valencia Ferraro Jun 27, 2017 13:56
--- NOTE | 2017-06-27 14:45 | HHI.PR ---
Objective Objective Results - Vital Signs Date Time Temp Pulse Resp B/P (MAP) Pulse Ox O2 Delivery O2 Flow Rate FiO2 06/27/17 13:27 98.9 63 20 153/72 (99) 95 Nasal Cannula 2 06/27/17 13:15 64 20 175/72 (106) 92 Nasal Cannula 2 06/27/17 13:00 66 20 169/73 (105) 91 Nasal Cannula 2 06/27/17 12:45 71 20 158/79 (105) 91 Simple Mask 6 06/27/17 12:39 98.9 76 20 173/91 (118) 91 Simple Mask 6 06/27/17 08:07 98.9 61 18 134/77 (96) 94 06/27/17 04:13 99.0 68 18 113/67 (82) 95 06/27/17 03:17 Room Air 06/27/17 00:50 99.1 67 18 128/77 (94) 96 06/27/17 00:23 62 18 125/67 (86) 95 06/26/17 23:36 95 06/26/17 20:54 69 15 146/66 (92) 95 Room Air 06/26/17 20:44 98.8 70 19 147/94 (111) 95 I/O 06/26/17 06/26/17 06/26/17 06/27/17 06/27/17 06/27/17 07:00 15:00 23:00 07:00 15:00 23:00 Intake Total 0 ml 950 ml Balance 0 ml 950 ml Intake Oral 0 ml IV Total 950 ml # Voids 1 # Bowel Movements 0 Result Diagram: 06/27/17 0804 06/27/17 0804 Imaging Last Impressions Chest X-Ray 06/26/172050 Signed Impressions: Service Date/Time: Monday, June 26, 2017 21:18 - CONCLUSION: Suspected mild atelectasis or consolidation at the left base. Manny Ugarte MD Humerus X-Ray 06/26/17 0000 Signed Impressions: Service Date/Time: Monday, June 26, 2017 21:23 - CONCLUSION: Acute fracture of the mid humerus. The patient has a left humeral prosthesis in place. Manny Ugarte MD Cervical Spine CT 06/26/17 0000 Signed Impressions: Service Date/Time: Monday, June 26, 2017 21:33 - CONCLUSION: Chronic degenerative changes throughout the cervical spine as described above. An acute bony abnormality is not seen. Manny Ugarte MD Other Results Laboratory Tests Test 06/26/17 20:58 06/27/17 08:04 White Blood Count 11.2 10.6 Red Blood Count 4.75 4.29 Hemoglobin 14.8 14.0 Hematocrit 45.1 41.0 Mean Corpuscular Volume 95.0 95.4 Mean Corpuscular Hemoglobin 31.2 32.7 Mean Corpuscular Hemoglobin Concent 32.9 34.3 Red Cell Distribution Width 13.7 13.8 Platelet Count 310 282 Mean Platelet Volume 8.3 8.4 Neutrophils (%) (Auto) 46.5 49.6 Lymphocytes (%) (Auto) 40.5 38.9 Monocytes (%) (Auto) 8.7 8.4 Eosinophils (%) (Auto) 3.4 2.5 Basophils (%) (Auto) 0.9 0.6 Neutrophils # (Auto) 5.2 5.3 Lymphocytes # (Auto) 4.5 4.1 Monocytes # (Auto) 1.0 0.9 Eosinophils # (Auto) 0.4 0.3 Basophils # (Auto) 0.1 0.1 CBC Comment DIFF FINAL DIFF FINAL Differential Comment Prothrombin Time 10.8 Prothromb Time International Ratio 1.0 Activated Partial Thromboplast Time 25.1 Blood Urea Nitrogen 14 15 Creatinine 1.11 1.19 Random Glucose 94 91 Total Protein 8.3 Albumin 3.1 Calcium Level 9.0 8.9 Alkaline Phosphatase 117 Aspartate Amino Transf (AST/SGOT) 40 Alanine Aminotransferase (ALT/SGPT) 25 Total Bilirubin 0.4 Sodium Level 134 136 Potassium Level 4.7 3.8 Chloride Level 99 99 Carbon Dioxide Level 28.4 31.0 Anion Gap 7 6 Estimat Glomerular Filtration Rate 47 44 Physical Exam Physical Exam PT is seen & Examined d/w PT d/w [facility] input appreciated see consult see orders am labs will f/u Issa Emerson MD Jun 27, 2017 14:45
--- NOTE | 2017-06-27 14:53 | HHI.FF ---
Face to Face Verification Diagnosis: (1) Humerus shaft fracture (2) chronic right leg weakness Physical Therapy Order: Evaluate and Treat Occupational Therapy Order: Evaluate and Treat Home Health Nursing Order: Medical education Nursing assessment with vital signs I have seen patient Saurav Mancilla on 06/27/17. My clinical findings support the need for the requested home health care services because: Deconditioned w/ increased weakness Limited ability to care for self Need for psychosocial assistance I certify that my clinical findings support that this patient is homebound because: Post-op weakness Unsteady gait/balance Need for psychosocial assistance [facility] Ferraro [facility] Jun 27, 2017 14:53
[2017-06-27] MEDS ORDERED: ERGOCALCIFEROL (VIT D2) 50,000 UNIT CAP PO SCH (16:00)
[2017-06-27] MEDS: ACETAMINOPHEN/HYDROcodone 325 MG/7.5 MG TAB PO PRN (16:21)
[2017-06-27] MEDS: ceFAZolin 2 GM PREMIX 50 ML IV SCH (17:25)
[2017-06-27] MEDS: cloNIDine HCL 0.2 MG TAB PO SCH (20:31)
[2017-06-27] MEDS: SODIUM CHLORIDE 0.9% FLUSH 5 ML FLUSH IVF SCH (20:31)
[2017-06-28] VITALS (7 sets, daily range): BP systolic 107–143; BP diastolic 65–77; PULSE 56–96; RESP 17–18; TEMP 97.1–98.6; O2SAT 92–96
[2017-06-28] MEDS: ceFAZolin 2 GM PREMIX 50 ML IV SCH ×2 (02:19→09:44)
[2017-06-28] MEDS: SODIUM CHLOR 0.9% 1000 ML INJ 1,000 ML IV SCH (05:29)
[2017-06-28] MEDS: ACETAMINOPHEN/HYDROcodone 325 MG/7.5 MG TAB PO PRN ×5 (05:56→22:54)
--- NOTE | 2017-06-28 06:44 | PD.ORT.PN ---
Subjective Subjective Remarks POD 1 s/p ORIF left periprosthetic humerus fx -doing well. states pain controlled. has not been out of bed yet Objective Vitals Vital Signs Date Time Temp Pulse Resp B/P (MAP) Pulse Ox O2 Delivery O2 Flow Rate FiO2 06/28/17 04:06 97.1 56 18 107/66 (80) 96 06/28/17 00:06 97.6 58 18 114/65 (81) 96 06/27/17 20:15 98.0 55 18 116/69 (85) 97 06/27/17 20:00 97 Nasal Cannula 2.00 06/27/17 17:37 95 21 06/27/17 16:22 96.7 113 16 121/64 (83) 95 06/27/17 13:27 98.9 63 20 153/72 (99) 95 Nasal Cannula 2 06/27/17 13:15 64 20 175/72 (106) 92 Nasal Cannula 2 06/27/17 13:00 66 20 169/73 (105) 91 Nasal Cannula 2 06/27/17 12:45 71 20 158/79 (105) 91 Simple Mask 6 06/27/17 12:39 98.9 76 20 173/91 (118) 91 Simple Mask 6 06/27/17 08:07 98.9 61 18 134/77 (96) 94 I/O 06/27/17 06/27/17 06/27/17 06/28/17 06/28/17 06/28/17 07:00 15:00 23:00 07:00 15:00 23:00 Intake Total 0 ml 1430 ml 290 ml 170 ml Balance 0 ml 1430 ml 290 ml 170 ml Intake Oral 0 ml 480 ml 240 ml 120 ml IV Total 950 ml 50 ml 50 ml # Voids 1 2 1 1 # Bowel Movements 0 0 0 Result Diagram: 06/27/17 0804 06/27/17 0804 Imaging Last 24 hours Impressions Chest X-Ray 06/26/172050 Signed Impressions: Service Date/Time: Monday, June 26, 2017 21:18 - CONCLUSION: Suspected mild atelectasis or consolidation at the left base. Manny Ugarte MD Objective Remarks LUE: dressings clean and dry. intact. NVI with good sensation to median/ulnar nerve. good radial nerve function Assessment & Plan Assessment and Plan 1) Left Midshaft Periprosthetic Humerus Fx s/p ORIF - POD 1 -NWB -sling -pendulums -daily dressing changes with xeroform/4x4/AGUSTIN -CM for rehab placement as patient has difficulty ambulating prior to surgery and will need assistance. not sufficient for aiding her -plan for DC to rehab when arrangements made -f/u with Cyndie or SAKINA in 2 weeks Reggie Wasserman Jun 28, 2017 06:44
[2017-06-28 07:01] LABS: HEMATOCRIT 35.8 % (35.0-46.0); MEAN CELL VOLUME 96.5 FL (80.0-100.0); MEAN CORPUSCULAR HEMOGLOBIN 32.2 PG (27.0-34.0); MEAN CORPUSCULAR HGB CONC 33.4 % (32.0-36.0); PLATELET COUNT 251 TH/MM3 (150-450); RED BLOOD COUNT 3.71 MIL/MM3 (4.00-5.30); RED CELL DISTRIBUTION WIDTH 13.4 % (11.6-17.2); REVIEW FLAG FINAL; WHITE BLOOD COUNT 12.2 TH/MM3 (4.0-11.0)
[2017-06-28 07:16] LABS: BICARBONATE 28.9 MEQ/L (21.0-32.0); POTASSIUM 4.2 MEQ/L (3.5-5.1)
[2017-06-28] MEDS ORDERED: ARMODAFINIL 250 MG PO SCH (09:00)
[2017-06-28] MEDS: SODIUM CHLORIDE 0.9% FLUSH 5 ML FLUSH IVF SCH ×2 (09:00→20:31)
[2017-06-28] MEDS: SODIUM CHLORIDE 0.9% FLUSH 10 ML FLUSH IV FLUSH SCH ×2 (09:44→20:30)
[2017-06-28] MEDS: LOSARTAN 50 MG TAB PO SCH (09:45)
[2017-06-28] MEDS: DOCUSATE SODIUM 50 MG/SENNA 8.6 MG TAB PO SCH ×2 (09:45→20:30)
[2017-06-28] MEDS: CHOLECALCIFEROL (VIT D3) 1000 UNIT TAB PO SCH (09:45)
[2017-06-28] MEDS: CALCIUM/VITAMIN D 250 MG/125 U TAB PO SCH ×3 (09:45→19:37)
--- NOTE | 2017-06-28 10:22 | HHI.PR ---
Subjective Remarks Awake, alert oriented 3 No fever Pain to left arm well-controlled Has been at bedside Patient states that she will like [facility] for therapy Has chronic weakness to both legs with neuropathy and has tendency to fall. Objective Objective Results - Vital Signs Date Time Temp Pulse Resp B/P (MAP) Pulse Ox O2 Delivery O2 Flow Rate FiO2 06/28/17 08:00 97.4 57 17 116/66 (83) 92 06/28/17 04:06 97.1 56 18 107/66 (80) 96 06/28/17 00:06 97.6 58 18 114/65 (81) 96 06/27/17 20:15 98.0 55 18 116/69 (85) 97 06/27/17 20:00 97 Nasal Cannula 2.00 06/27/17 17:37 95 21 06/27/17 16:22 96.7 113 16 121/64 (83) 95 06/27/17 13:27 98.9 63 20 153/72 (99) 95 Nasal Cannula 2 06/27/17 13:15 64 20 175/72 (106) 92 Nasal Cannula 2 06/27/17 13:00 66 20 169/73 (105) 91 Nasal Cannula 2 06/27/17 12:45 71 20 158/79 (105) 91 Simple Mask 6 06/27/17 12:39 98.9 76 20 173/91 (118) 91 Simple Mask 6 I/O 06/27/17 06/27/17 06/27/17 06/28/17 06/28/17 06/28/17 07:00 15:00 23:00 07:00 15:00 23:00 Intake Total 0 ml 1430 ml 290 ml 170 ml Balance 0 ml 1430 ml 290 ml 170 ml Intake Oral 0 ml 480 ml 240 ml 120 ml IV Total 950 ml 50 ml 50 ml # Voids 1 2 1 1 # Bowel Movements 0 0 0 Result Diagram: 06/28/1724 06/28/17623 Imaging Last Impressions Chest X-Ray 06/26/172050 Signed Impressions: Service Date/Time: Monday, June 26, 2017 21:18 - CONCLUSION: Suspected mild atelectasis or consolidation at the left base. Manny Ugarte MD Humerus X-Ray 06/26/17 0000 Signed Impressions: Service Date/Time: Monday, June 26, 2017 21:23 - CONCLUSION: Acute fracture of the mid humerus. The patient has a left humeral prosthesis in place. Manny Ugarte MD Cervical Spine CT 06/26/17 0000 Signed Impressions: Service Date/Time: Monday, June 26, 2017 21:33 - CONCLUSION: Chronic degenerative changes throughout the cervical spine as described above. An acute bony abnormality is not seen. Manny Ugarte MD Other Results Laboratory Tests Test 06/28/17 06:24 White Blood Count 12.2 Red Blood Count 3.71 Hemoglobin 12.0 Hematocrit 35.8 Mean Corpuscular Volume 96.5 Mean Corpuscular Hemoglobin 32.2 Mean Corpuscular Hemoglobin Concent 33.4 Red Cell Distribution Width 13.4 Platelet Count 251 Mean Platelet Volume 8.2 Blood Urea Nitrogen 16 Creatinine 1.35 Random Glucose 111 Calcium Level 8.0 Sodium Level 137 Potassium Level 4.2 Chloride Level 102 Carbon Dioxide Level 28.9 Anion Gap 6 Estimat Glomerular Filtration Rate 38 ROS General: No: Fatigue, Weakness HEENT: No: Sore Throat, Dysphagia Cardiac: No: Chest Pain, Edema, Palpitations Pulmonary: No: Cough, SOB, Wheezing GI: No: Abdominal Pain, BM, Diarrhea, N/V /SLUBBER TENDER: No: Dysuria, Urgency Neuro/MS: Other (left arm, shoulder pain. Bilateral leg weakness.) Psych: No: Anxiety, Depression Skin: No: Itching, Rash Physical Exam Physical Exam GENERAL: This is a well-nourished, well-developed patient, in no apparent distress. SKIN: No rashes, ecchymoses or lesions. Cool and dry. HEAD: Atraumatic. Normocephalic. No temporal or scalp tenderness. EYES: Pupils equal round and reactive. Extraocular motions intact. No scleral icterus. No injection or drainage. ENT: Nose without bleeding, purulent drainage or septal hematoma. Throat without erythema, tonsillar hypertrophy or exudate. Uvula midline. Airway patent. NECK: Trachea midline. No JVD or lymphadenopathy. Supple, nontender, no meningeal signs. CARDIOVASCULAR: Regular rate and rhythm without murmurs, gallops, or rubs. RESPIRATORY: Clear to auscultation. Breath sounds equal bilaterally. No wheezes , rales, or rhonchi. GASTROINTESTINAL: Abdomen soft, non-tender, nondistended. No hepato-splenomegaly , or palpable masses. No guarding. MUSCULOSKELETAL: Left arm and anterior shoulder with dressing D/I, immobilized in sling. Able to make fist with left hand, intact sensation, radial pulse 2+. No other joint abnormality NEUROLOGICAL: Awake, alert oriented 3. No focal deficit A/P Diagnosis: (1) Humerus shaft fracture ICD Codes: S42.309A - Unspecified fracture of shaft of humerus, unspecified arm , initial encounter for closed fracture Status: Acute (2) HYPERTENSION NOS Status: Chronic Permanent Comment: Dr Cummins is Curriculum Development Coordinator Last Edited By: Daisha Loo on Jun 13, 2010 12:26 (3) Chronic Renal Failure Stage III Status: Chronic Permanent Comment: Dr Mccarthy customer logistics manager Last Edited By: Daisha Loo on Jan 08, 2009 13:31 (4) Osteoarthritis Status: Chronic (5) HYPERLIPIDEMIA NEC/NOS Status: Chronic (6) Gastroesophageal reflux disease Status: Chronic (7) chronic right leg weakness Status: Chronic Assessment and Plan 81-year-old elderly female, presented after mechanical fall fall landing on her left side, found with acute fracture of the mid humerus. Patient with prior history of dual left shoulder surgery. Status post-Open reduction internal fixation left humerus fracture 06/27 -Appreciate orthopedic input -Continue with postoperative orthopedic care -SCDs for DVT prophylaxis -Pain management -Physical therapy for evaluation and treatment -Case management for discharge planning-CIR evaluation Chronic right leg weakness secondary to peripheral neuropathy associated with prior history of shingles -Physical therapy Hypertension, stable -Continue home meds Chronic kidney disease stage III -Monitor renal function closely, follow BMP -Avoid nephrotoxic agents SCDs for DVT prophylaxis Labs reviewed, stable Case management for discharge planning, [facility] evaluation D/W RN D/W Dr. Emerson D/W pt and This patient was seen by myself and Dr. Emerson, this note is written on his behalf Problem Qualifiers (1) Humerus shaft fracture: Qualified Codes: S42.322A - Displaced transverse fracture of shaft of humerus, left arm, initial encounter for closed fracture (2) Osteoarthritis: Qualified Codes: M19.90 - Unspecified osteoarthritis, unspecified site (3) Gastroesophageal reflux disease: Qualified Codes: K21.9 - Gastro-esophageal reflux disease without esophagitis [facility] Ferraro Jun 28, 2017 10:22
[2017-06-28] MEDS: cloNIDine HCL 0.2 MG TAB PO SCH (20:30)
[2017-06-29 00:26] VITALS: BP 150/74; PULSE 65; RESP 18; TEMP 98.2; O2SAT 95
[2017-06-29] MEDS: SODIUM CHLOR 0.9% 1000 ML INJ 1,000 ML IV SCH (01:34)
[2017-06-29] MEDS: ACETAMINOPHEN/HYDROcodone 325 MG/7.5 MG TAB PO PRN ×3 (04:57→14:31)
--- NOTE | 2017-06-29 07:02 | PD.ORT.PN ---
Subjective Subjective Remarks POD 2 s/p ORIF left periprosthetic humerus fx -doing well. states pain controlled. out of bed with assistance Objective Vitals Vital Signs Date Time Temp Pulse Resp B/P (MAP) Pulse Ox O2 Delivery O2 Flow Rate FiO2 06/29/17 00:26 98.2 65 18 150/74 (99) 95 06/28/17 20:26 98.6 63 18 137/71 (93) 96 06/28/17 20:00 96 Room Air 06/28/17 17:41 94 21 06/28/17 16:00 98.5 63 18 143/73 (96) 94 06/28/17 13:38 21 06/28/17 12:00 97.5 96 18 121/77 (92) 95 06/28/17 08:00 97.4 57 17 116/66 (83) 92 I/O 06/28/17 06/28/17 06/28/17 06/29/17 06/29/17 06/29/17 07:00 15:00 23:00 07:00 15:00 23:00 Intake Total 170 ml 1010 ml 240 ml 240 ml Balance 170 ml 1010 ml 240 ml 240 ml Intake Oral 120 ml 960 ml 240 ml 240 ml IV Total 50 ml 50 ml # Voids 1 2 2 2 # Bowel Movements 0 0 0 Result Diagram: 06/28/1762306/28/17623 Imaging Last 24 hours Impressions Chest X-Ray 06/26/172050 Signed Impressions: Service Date/Time: Monday, June 26, 2017 21:18 - CONCLUSION: Suspected mild atelectasis or consolidation at the left base. Manny Ugarte MD Objective Remarks LUE: dressings clean and dry. intact. NVI with good sensation to median/ulnar nerve. good radial nerve function Assessment & Plan Assessment and Plan 1) Left Midshaft Periprosthetic Humerus Fx s/p ORIF - POD 2 -NWB -sling -pendulums -daily dressing changes with xeroform/4x4/AGUSTIN -CM for rehab placement as patient has difficulty ambulating prior to surgery and will need assistance. not sufficient for aiding her -patient requests [facility] inpatient re[facility] -plan for DC to rehab when arrangements made -f/u with Cyndie or SAKINA in 2 weeks Reggie Wasserman Jun 29, 2017 07:02
[2017-06-29 08:00] VITALS: BP 131/76; PULSE 64; RESP 18; TEMP 99; O2SAT 91
[2017-06-29] MEDS: SODIUM CHLORIDE 0.9% FLUSH 5 ML FLUSH IVF SCH (09:00)
[2017-06-29] MEDS: LOSARTAN 50 MG TAB PO SCH (09:23)
[2017-06-29] MEDS: DOCUSATE SODIUM 50 MG/SENNA 8.6 MG TAB PO SCH (09:23)
[2017-06-29] MEDS: CHOLECALCIFEROL (VIT D3) 1000 UNIT TAB PO SCH (09:23)
[2017-06-29] MEDS: CALCIUM/VITAMIN D 250 MG/125 U TAB PO SCH ×2 (09:23→14:31)
[2017-06-29] MEDS: SODIUM CHLORIDE 0.9% FLUSH 10 ML FLUSH IV FLUSH SCH (09:24)
--- NOTE | 2017-06-29 10:34 | HHI.DCPOC ---
Discharge Care Plan Diagnosis: (1) Humerus shaft fracture Your Health Problems Are: Difficulty with ADL Goals to Promote Your Health * To prevent worsening of your condition and complications * To maintain your health at the optimal level Directions to Meet Your Goals Take your medications as prescribed Follow your dietary instruction Follow activity as directed Keep your appointments as scheduled Take your immunizations and boosters as scheduled If your symptoms worsen call your PCP, if no PCP go to Urgent Care Center or Emergency Room Smoking is Dangerous to Your Health. Avoid second hand smoke Call the 24-hour hour crisis hotline for domestic abuse at [place] Ferraro Jun 29, 2017 10:34
--- NOTE | 2017-06-29 10:35 | HHI.PR ---
Subjective Remarks sitting up in bed was out of bed with PT had BM c/o left sided rib pain, under left breast and post. back, inc. with touch and deep breathing concerned about kidney, only has one functioning no blood in urine no sob no fever at bsd Objective Objective Results - Vital Signs Date Time Temp Pulse Resp B/P (MAP) Pulse Ox O2 Delivery O2 Flow Rate FiO2 06/29/17 08:00 99.0 64 18 131/76 (94) 91 06/29/17 00:26 98.2 65 18 150/74 (99) 95 06/28/17 20:26 98.6 63 18 137/71 (93) 96 06/28/17 20:00 96 Room Air 06/28/17 17:41 94 21 06/28/17 16:00 98.5 63 18 143/73 (96) 94 06/28/17 13:38 21 06/28/17 12:00 97.5 96 18 121/77 (92) 95 I/O 06/28/17 06/28/17 06/28/17 06/29/17 06/29/17 06/29/17 07:00 15:00 23:00 07:00 15:00 23:00 Intake Total 170 ml 1010 ml 240 ml 240 ml Balance 170 ml 1010 ml 240 ml 240 ml Intake Oral 120 ml 960 ml 240 ml 240 ml IV Total 50 ml 50 ml # Voids 1 2 2 2 # Bowel Movements 0 0 0 Result Diagram: 06/28/17 0624 06/28/17 0624 Imaging Last Impressions Chest X-Ray 06/26/172050 Signed Impressions: Service Date/Time: Monday, June 26, 2017 21:18 - CONCLUSION: Suspected mild atelectasis or consolidation at the left base. Manny Ugarte MD Humerus X-Ray 06/26/17 0000 Signed Impressions: Service Date/Time: Monday, June 26, 2017 21:23 - CONCLUSION: Acute fracture of the mid humerus. The patient has a left humeral prosthesis in place. Manny Ugarte MD Cervical Spine CT 06/26/17 0000 Signed Impressions: Service Date/Time: Monday, June 26, 2017 21:33 - CONCLUSION: Chronic degenerative changes throughout the cervical spine as described above. An acute bony abnormality is not seen. Manny Ugarte MD ROS Cardiac: Other (left sided chest wall pain, under left breast ) Neuro/MS: Other (left arm/shoulder pain. ) Physical Exam Physical Exam GENERAL: This is a well-nourished, well-developed patient, in no apparent distress. SKIN: No rashes, ecchymoses or lesions. Cool and dry. HEAD: Atraumatic. Normocephalic. No temporal or scalp tenderness. EYES: Pupils equal round and reactive. Extraocular motions intact. No scleral icterus. No injection or drainage. ENT: Nose without bleeding, purulent drainage or septal hematoma. Throat without erythema, tonsillar hypertrophy or exudate. Uvula midline. Airway patent. NECK: Trachea midline. No JVD or lymphadenopathy. Supple, nontender, no meningeal signs. CARDIOVASCULAR: Regular rate and rhythm without murmurs, gallops, or rubs. RESPIRATORY: Clear to auscultation. Breath sounds equal bilaterally. No wheezes , rales, or rhonchi. GASTROINTESTINAL: Abdomen soft, non-tender, nondistended. No hepato-splenomegaly , or palpable masses. No guarding. MUSCULOSKELETAL: Left arm and anterior shoulder with dressing D/I, immobilized in sling. Able to make fist with left hand, intact sensation, radial pulse 2+. No other joint abnormality Tender to palpation under left breast, no rib deformity NEUROLOGICAL: Awake, alert oriented 3. No focal deficit Urinary Catheter: No Vascular Central Line Catheter: No A/P Diagnosis: (1) Humerus shaft fracture ICD Codes: S42.309A - Unspecified fracture of shaft of humerus, unspecified arm , initial encounter for closed fracture Status: Acute (2) HYPERTENSION NOS Status: Chronic Permanent Comment: Dr Cummins is Disc Pad Plate Filler Last Edited By: Daisha Loo on Jun 13, 2010 12:26 (3) Chronic Renal Failure Stage III Status: Chronic Permanent Comment: Dr Mccarthy software quality specialist Last Edited By: Daisha Loo on Jan 08, 2009 13:31 (4) Osteoarthritis Status: Chronic (5) HYPERLIPIDEMIA NEC/NOS Status: Chronic (6) Gastroesophageal reflux disease Status: Chronic (7) chronic right leg weakness Status: Chronic Assessment and Plan 81-year-old elderly female, presented after mechanical fall fall landing on her left side, found with acute fracture of the mid humerus. Patient with prior history of dual left shoulder surgery. Status post-Open reduction internal fixation left humerus fracture 06/27 -Appreciate orthopedic input -Continue with postoperative orthopedic care -SCDs for DVT prophylaxis -Pain management -Physical therapy for evaluation and treatment -Case management for discharge planning-[facility] has acceptedd -uneventful post op course. Stable for dc, cleared by ortho Chronic right leg weakness secondary to peripheral neuropathy associated with prior history of shingles -Physical therapy Hypertension, stable -Continue home meds Chronic kidney disease stage III -Monitor renal function closely, follow BMP -Avoid nephrotoxic agents Left sided, under breast, rib pain, post. left lower back -rib xray today -enc. to splint -f/u results SCDs for DVT prophylaxis accepted at [facility] stable for discharge will f/u rib xray, enc. IS use and splinting f/u ortho 2 weeks diet-heart healthy activity-per ortho wound care - per ortho D/W RN D/W Dr. Hanson D/W pt and D/W CM This patient was seen by myself and Dr. Hanson, this note is written on his behalf Problem Qualifiers (1) Humerus shaft fracture: Qualified Codes: S42.322A - Displaced transverse fracture of shaft of humerus, left arm, initial encounter for closed fracture (2) Osteoarthritis: Qualified Codes: M19.90 - Unspecified osteoarthritis, unspecified site (3) Gastroesophageal reflux disease: Qualified Codes: K21.9 - Gastro-esophageal reflux disease without esophagitis Valencia Ferraro Jun 29, 2017 10:35
--- NOTE | 2017-06-29 10:35 | HHI.DS ---
Discharge Summary Admission Date Jun 26, 2017 at 23:35 Discharge Date: Jun 29, 2017 Admitting Diagnosis L humerus fracture; h/o HTN (1) Humerus shaft fracture ICD Codes: S42.309A - Unspecified fracture of shaft of humerus, unspecified arm , initial encounter for closed fracture Status: Acute (2) HYPERTENSION NOS Status: Chronic (3) Chronic Renal Failure Stage III Status: Chronic (4) Osteoarthritis Status: Chronic (5) HYPERLIPIDEMIA NEC/NOS Status: Chronic (6) Gastroesophageal reflux disease Status: Chronic (7) chronic right leg weakness Status: Chronic CBC/BMP: 06/28/17 0624 06/28/17 0624 Significant Findings Laboratory Tests Test 06/26/17 20:58 06/27/17 08:04 06/28/17 06:24 White Blood Count 11.2 TH/MM3 (4.0-11.0) 12.2 TH/MM3 (4.0-11.0) Monocytes (%) (Auto) 8.7 % (0.0-8.0) 8.4 % (0.0-8.0) Monocytes # (Auto) 1.0 TH/MM3 (0-0.9) Creatinine 1.11 MG/DL (0.50-1.00) 1.19 MG/DL (0.50-1.00) 1.35 MG/DL (0.50-1.00) Total Protein 8.3 GM/DL (6.4-8.2) Albumin 3.1 GM/DL (3.4-5.0) Aspartate Amino Transf (AST/SGOT) 40 U/L (15-37) Sodium Level 134 MEQ/L (136-145) Estimat Glomerular Filtration Rate 47 ML/MIN (>89) 44 ML/MIN (>89) 38 ML/MIN (>89) Red Blood Count 3.71 MIL/MM3 (4.00-5.30) Random Glucose 111 MG/DL (74-106) Calcium Level 8.0 MG/DL (8.5-10.1) Imaging Last Impressions Humerus X-Ray 06/27/17 0000 Signed Impressions: Service Date/Time: Tuesday, June 27, 2017 11:55 - CONCLUSION: Anatomic alignment. Mic Cardona MD FACR Chest X-Ray [id number]/[id number] Signed Impressions: Service Date/Time: Monday, June 26, 2017 21:18 - CONCLUSION: Suspected mild atelectasis or consolidation at the left base. Manny Ugarte MD Cervical Spine CT 06/26/17 0000 Signed Impressions: Service Date/Time: Monday, June 26, 2017 21:33 - CONCLUSION: Chronic degenerative changes throughout the cervical spine as described above. An acute bony abnormality is not seen. Manny Ugarte MD Hospital Course This is an 81-year-old female with significant past medical history of lupus, arthritis, hypertension, idiopathic thrombocytopenic purpura status post splenectomy, previous falls with fractures. Patient presented to the emergency room after she had a fall. 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 Patient had immediate pain to the left humerus. Patient was noted with the deformity to the left upper arm. She has prior history of 2 surgeries to the left arm. She had a left total shoulder reverse surgery in the past. Patient presented to the emergency room, she was evaluated. Laboratory workup was essentially unremarkable except for chronic renal insufficiency which appears to be at her baseline. Imaging studies were completed, showing acute fracture of the mid humerus. Patient was evaluated by Dr. Agee and surgical repair was recommended. She underwent - Open reduction internal fixation left humerus fracture. Patient was evaluated, she was back in her room. She was groggy had received pain medicine. Information was obtained from patient's who is also a local physician. He indicated there were no preceding symptoms, she simply tripped and fell. She does use a cane for ambulation, has chronic right lower extremity weakness as a residual complication from shingles approximately one year ago. Patient was admitted for further evaluation and treatment. (1) Humerus shaft fracture ICD Codes: S42.309A - Unspecified fracture of shaft of humerus, unspecified arm , initial encounter for closed fracture Status: Acute (2) HYPERTENSION NOS Status: Chronic (3) Chronic Renal Failure Stage III Status: Chronic Permanent Comment: Dr Mccarthy digital imaging specialist Last Edited By: Daisha Loo on Jan 08, 2009 13:31 (4) Osteoarthritis Status: Chronic (5) HYPERLIPIDEMIA NEC/NOS Status: Chronic (6) Gastroesophageal reflux disease Status: Chronic (7) chronic right leg weakness Status: Chronic Assessment and Plan 81-year-old elderly female, presented after mechanical fall fall landing on her left side, found with acute fracture of the mid humerus. Patient with prior history of dual left shoulder surgery. Status post-Open reduction internal fixation left humerus fracture 06/27 -Appreciate orthopedic input -Continue with postoperative [facility] -Pain management -Physical therapy for evaluation and treatment -Case management for discharge planning-[facility] has accepted -uneventful post op course. 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 left lower back -rib xray today -enc. to splint -f/u results at [facility] for DVT prophylaxis accepted at [facility] stable for discharge will f/u rib xray, enc. IS use and splinting f/u ortho 2 weeks diet-heart healthy activity-per ortho wound care - per ortho Pt Condition on Discharge: Stable Discharge Disposition: Rehab Inpatient Discharge Instructions DIET: Follow Instructions for: Heart Healthy Diet Activities you can perform: Weight Bearing as Ritika Follow up Referrals: Orthopedics - 2 Weeks @ [facility] with Stephen Agee MD New Medications: Calcium Carbonate-Vitamin D (Calcium 600+D 200) 600-200 Mg-Unit Tab 1 TAB PO BID for Nutritional Supplement for 30 Days, TAB 0 Refills Cholecalciferol (Vitamin D3) 2,000 Unit Cap 2000 UNITS PO DAILY for Nutritional Supplement, #56 CAP 0 Refills Ergocalciferol (Ergocalciferol) 50,000 Unit Cap 00763 UNITS PO Q7D for Nutritional Supplement, #56 CAP Hydrocodone-Acetaminophen (Hydrocodone-Acetaminophen) 7.5-325 mg Tab 1 TAB PO Q4H PRN for PAIN, #60 TAB 0 Refills Continued Medications: Armodafinil (Armodafinil) 250 Mg Tab 250 MG PO DAILY, #30 TAB 0 Refills Calcium Citrate-Vitamin D (Citracal + D3 Maximum) 315-250 Mg-Unit Tab 1 TAB PO DAILY for Calcium Supplement, #100 TAB 0 Refills Clonidine (Clonidine) 0.2 Mg Tab 0.2 MG PO HS for Blood Pressure Management, #60 TAB 0 Refills Diazepam (Valium) 10 Mg Tab 10 MG PO HS PRN for ANXIETY, TAB 0 Refills Fish Oil-Cholecalciferol (Casselberry-3 Fish Oil/Vitamin) 1,000-1,000 Mg Cap 1 CAP PO DAILY for Nutritional Supplement, CAP 0 Refills Losartan (Losartan) 50 Mg Tab 50 MG PO DAILY for Blood Pressure Management, #30 TAB 0 Refills Multivit-Min/Iron/Folic/Lutein (Centrum Silver Women Tablet) 8 Mg Iron-400 Mcg- 300 Mcg Tablet 1 TAB PO DAILY Discontinued Medications: Cholecalciferol (Vitamin D3) 2,000 Unit Cap 2000 UNITS PO DAILY for Nutritional Supplement, #1 BOTTLE 0 Refills Valacyclovir (Valtrex) 1,000 Mg Tab 1000 MG PO TID for Mgmt Viral Infection, #90 TAB 0 Refills [Cortumin] () 1 TAB PO DAILY [prevagin] () 1 TAB PO DAILY Valencia Ferraro Jun 29, 2017 10:35
--- NOTE | 2017-06-29 15:19 | RADRPT ---
EXAM DATE/TIME: 06/29/2017 14:43 [place] COMPARISON: No previous studies available for comparison. INDICATIONS : Left side rib pain; fall on Thursday. MEDICAL HISTORY : None. SURGICAL HISTORY : None. ENCOUNTER: Initial ACUITY: 3 days PAIN SCORE: 7/10 LOCATION: Left ribs. FINDINGS: There are nondisplaced fractures of the left sixth and seventh rib without pneumothorax. There is mi ld compensated cardiomegaly. Total shoulder arthroplasty is present on the left with plate from prev ious fracture. CONCLUSION: Nondisplaced fracture left sixth and seventh ribs. Compensated cardiomegaly. Mic Cardona MD FACR on June 29, 2017 at 15:15 Board Certified Radiologist. This report was verified electronically.
[2017-07-10] MEDS ORDERED: QUAD CANE/LARGE1 MI5 (13:24)
[2017-07-10] MEDS ORDERED: WHEEMIS3 (13:24)
[2017-07-13] MEDS ORDERED: CLON.1 PO (11:56)
[2017-07-13] MEDS ORDERED: GABA100C4 PO ×2 (11:56)
[2017-07-13] MEDS ORDERED: CALC250 PO (11:56)
[2017-07-13] MEDS ORDERED: LIDO5DIS5 T-DERMAL (11:56)
[2017-07-13] MEDS ORDERED: COZA50TA PO (11:56)
[2017-07-13] MEDS ORDERED: VITA1000 PO (11:56)
[2017-07-13] MEDS ORDERED: THERTAB15 PO (11:56)
[2017-07-13] MEDS ORDERED: CLON.2 PO (11:56)
[2017-07-13] MEDS ORDERED: POLY17S PO (11:56)
[2017-07-14] MEDS ORDERED: DIAZ2 PO (09:44)
[2017-07-14] MEDS ORDERED: HYDR-3583 PO (09:44)
[2017-07-14] MEDS ORDERED: CLON0.3T PO (10:43)
== END 2017-06-29 16:31 | DRG 493 ==
LOC: NEPC 20:34 → NEDA 23:35 → N06A 06-27 00:48
PROVIDERS: ADMIT Specialist; ATTEND Specialist
PROC: 0PSG04Z Reposition Left Humeral Shaft with Internal Fixation Device, Open Approach (ICD-10-PCS; principal; 2017-06-27 10:06)
DX: S42.202A Unspecified fracture of upper end of left humerus, initial encounter for closed fracture (principal); M97.32XA Periprosthetic fracture around internal prosthetic left shoulder joint, initial encounter; D69.3 Immune thrombocytopenic purpura; G62.9 Polyneuropathy, unspecified; I13.0 Hypertensive heart and chronic kidney disease with heart failure and stage 1 through stage 4 chronic kidney disease, or unspecified chronic kidney disease; I50.9 Heart failure, unspecified; N18.3 Chronic kidney disease, stage 3 (moderate); J98.11 Atelectasis; Z96.612 Presence of left artificial shoulder joint; W01.0XXA Fall on same level from slipping, tripping and stumbling without subsequent striking against object, initial encounter; Y92.59 Other trade areas as the place of occurrence of the external cause; E78.5 Hyperlipidemia, unspecified; F90.9 Attention-deficit hyperactivity disorder, unspecified type; G47.33 Obstructive sleep apnea (adult) (pediatric); J44.9 Chronic obstructive pulmonary disease, unspecified; K21.9 Gastro-esophageal reflux disease without esophagitis; K31.84 Gastroparesis; L40.9 Psoriasis, unspecified; M19.90 Unspecified osteoarthritis, unspecified site; M81.0 Age-related osteoporosis without current pathological fracture; R29.6 Repeated falls; Z85.528 Personal history of other malignant neoplasm of kidney; Z90.710 Acquired absence of both cervix and uterus; Z90.81 Acquired absence of spleen; Z96.651 Presence of right artificial knee joint
CPT/HCPCS: 71010; 71101; 72125; 73060; 76000; 80048; 80053; 85025; 85027; 85610; 85730; 86850; 86900; 86901; 93005; 96374; C1713; J0131; J0690; J1580; J2250; J2270; J2405; J3010; J3370; J7030; L0150